=== PATIENT | female | born 1955 | race Caucasian/White ===

== ENCOUNTER 2021-11-10 07:38 | Inpatient (IN) | payer MEDICARE, OTHER ==
[~2021-11-10] VITALS: Ht 162.6 cm; Wt 80.3 kg
[2021-11-10 09:14] LABS: BASOPHIL 0.4 % (0-2); EOSINOPHIL 0.8 % (0-7); HCT 44.2 % (37.0-47.0); HGB 14.5 g/dl (12.5-16.0); LYMPHOCYTE 9.7 % (15-48); MCH 31.7 pg (25.0-31.0); MCHC 32.8 g/dL (32.0-36.0); MCV 96.7 fL (78.0-100.0); MONOCYTE 9.7 % (0-12); MPV 10.5 fL (6.0-9.5); NEUTROPHIL 78.7 % (41-80); NRBC 0; PLT 232 K/uL (150-400); RBC 4.57 M/uL (4.20-5.40); RDW 14.7 % (11.5-14.0); WBC 15.9 K/uL (4.0-10.5)
[2021-11-10 10:08] LABS: LACTIC ACID 3.1 mmol/L (0.4-1.9)
[2021-11-10 10:11] LABS: ALBUMIN 3.8 g/dL (3.4-5.0); BILIRUBIN - TOTAL 0.7 mg/dL (0.2-1.0); BUN/CREAT RATIO (CALC) 13.2 RATIO; C-REACTIVE PROTEIN 1.9 mg/dL (<=0.90); CREATININE 0.76 mg/dL (0.51-0.95); GLOBULIN (CALCULATION) 3.1 g/dL; POTASSIUM 3.7 mmol/L (3.5-5.1); TOTAL PROTEIN 6.9 g/dL (6.4-8.2)
[2021-11-10] MEDS ORDERED: PRINIVIL20 MG PO (13:00)
[2021-11-10] MEDS ORDERED: RHEUMATREX2.5 MG PO (13:00)
[2021-11-10] MEDS ORDERED: ELIQUIS2.5 MG PO (13:00)
[2021-11-10] MEDS ORDERED: FOLIC ACID1 MG PO (13:01)
[2021-11-10] MEDS ORDERED: NORVASC5 MG PO (13:01)
[2021-11-10] MEDS ORDERED: TRIAMCINOLONE A15 G2 TOP (13:09)
[2021-11-10] MEDS ORDERED: DESONIDE15 GM TOP (13:09)
[2021-11-10] MEDS ORDERED: ATARAX25 MG PO (13:10)
[2021-11-10] MEDS ORDERED: CRESTOR10 MG PO (13:11)
[2021-11-10] MEDS ORDERED: SYNTHROID25 MCG PO (13:11)
[2021-11-10] MEDS ORDERED: BENTYL10 MG PO (13:11)
[2021-11-11 05:36] LABS: BUN/CREAT RATIO (CALC) 8.8 RATIO; CREATININE 1.6 mg/dL (0.51-0.95); POTASSIUM 3.7 mmol/L (3.5-5.1)
[2021-11-11 06:04] LABS: BASOPHIL 0.5 % (0-2); HCT 40.2 % (37.0-47.0); HGB 12.9 g/dl (12.5-16.0); LYMPHOCYTE 12.4 % (15-48); MCH 31.9 pg (25.0-31.0); MCHC 32.1 g/dL (32.0-36.0); MCV 99.3 fL (78.0-100.0); MONOCYTE 10.2 % (0-12); NEUTROPHIL 75.5 % (41-80); NRBC 0; PLT 193 K/uL (150-400); RBC 4.05 M/uL (4.20-5.40); RDW 14.9 % (11.5-14.0); WBC 14.7 K/uL (4.0-10.5)
[2021-11-12 06:29] LABS: BASOPHIL 0.4 % (0-2); EOSINOPHIL 2.5 % (0-7); HCT 37.7 % (37.0-47.0); HGB 12.3 g/dl (12.5-16.0); MCH 31.6 pg (25.0-31.0); MCHC 32.6 g/dL (32.0-36.0); MCV 96.9 fL (78.0-100.0); MONOCYTE 9.7 % (0-12); NRBC 0; PLT 200 K/uL (150-400); RBC 3.89 M/uL (4.20-5.40); RDW 14.5 % (11.5-14.0); WBC 9.6 K/uL (4.0-10.5)
[2021-11-12 06:50] LABS: CREATININE 1.55 mg/dL (0.51-0.95); POTASSIUM 3.4 mmol/L (3.5-5.1)
[2021-11-13 06:19] LABS: BASOPHIL 0.9 % (0-2); EOSINOPHIL 4.4 % (0-7); HCT 39.3 % (37.0-47.0); HGB 12.8 g/dl (12.5-16.0); LYMPHOCYTE 24.2 % (15-48); MCH 31.3 pg (25.0-31.0); MCHC 32.6 g/dL (32.0-36.0); MCV 96.1 fL (78.0-100.0); MONOCYTE 9.1 % (0-12); MPV 10.9 fL (6.0-9.5); NRBC 0; PLT 242 K/uL (150-400); RBC 4.09 M/uL (4.20-5.40); RDW 14.2 % (11.5-14.0)
[2021-11-13 06:37] LABS: BUN/CREAT RATIO (CALC) 10.4 RATIO; CREATININE 1.35 mg/dL (0.51-0.95); POTASSIUM 3.5 mmol/L (3.5-5.1)
[2021-11-13] MEDS ORDERED: AUGMENTIN 500-1 EACH PO (08:06)
[2021-11-13] MEDS ORDERED: NORCO 5-325 TA1 EACH PO (08:06)
[2021-11-13] MEDS ORDERED: FLORANEX TABLE1 EACH PO (08:06)
[2021-11-13] MEDS ORDERED: ONDANSETRON ODT8 MG PO (08:15)
[2021-11-13 08:32] LABS: BILIRUBIN NEGATIVE (NEGATIVE); BLOOD TRACE-INTACT Ery/uL (NEGATIVE); CLARITY CLEAR (CLEAR); COLOR YELLOW (YELLOW); GLUCOSE (U) NORMAL (NORMAL); LEUKOCYTES NEGATIVE Leu/uL (NEGATIVE); NITRITE NEGATIVE (NEGATIVE); PROTEIN NEGATIVE (NEGATIVE); UROBILINOGEN 0.2 mg/dL (0.2-1.0)
[2021-11-13 08:54] LABS: URINARY RBC RARE; URINARY WBC RARE
[2021-11-13 08:55] LABS: BACTERIA TRACE; SQUAMOUS EPITHELIAL CELLS RARE
== END 2021-11-13 13:25 | disposition home or self-care (01) | DRG 602 ==
LOC: FER 07:38 → FTCU 11:25
PROVIDERS: Emergency Medicine; ADMIT Family Medicine
PROC: 3E0234Z Introduction of Serum, Toxoid and Vaccine into Muscle, Percutaneous Approach (ICD-10-PCS; principal; 2021-11-10)
DX: L03.115 Cellulitis of right lower limb (principal); G92.8 Other toxic encephalopathy; N17.9 Acute kidney failure, unspecified; D84.9 Immunodeficiency, unspecified; Z20.822 Contact with and (suspected) exposure to COVID-19; Z23 Encounter for immunization; E87.6 Hypokalemia; I10 Essential (primary) hypertension; L40.9 Psoriasis, unspecified; E86.0 Dehydration; R79.89 Other specified abnormal findings of blood chemistry; E03.9 Hypothyroidism, unspecified; E11.9 Type 2 diabetes mellitus without complications; R11.0 Nausea; F17.290 Nicotine dependence, other tobacco product, uncomplicated; T40.2X5A Adverse effect of other opioids, initial encounter; Z80.3 Family history of malignant neoplasm of breast; W55.01XA Bitten by cat, initial encounter; Z79.899 Other long term (current) drug therapy; Z88.2 Allergy status to sulfonamides; Z98.890 Other specified postprocedural states
CPT/HCPCS: 36415; 73590; 80048; 80053; 81001; 82550; 82962; 83036; 83605; 84145; 84443; 85025; 86140; 87040; 90471; 90715; 93005; 93971; 94010; G0378; J0780; J1170; J2405; J2543; J3370; J7030; J7050; J7120; U0002